=== PATIENT | male | born 1950 | race Caucasian/White ===

== ENCOUNTER 2016-11-19 12:34 | Outpatient (CLI) | payer BC, OTHER ==
[~2016-11-19] VITALS: Ht 177.8 cm; Wt 131.5 kg
[~2016-11-19 12:34] MED LIST: ASPI325T PO; ASPI81TAEC PO; ATEN50TA2 PO; ATOR1TAB21 PO; AZEL0.1S3; ELIQ5TAB PO; FLON1SPR; MELA5TAB17 PO; METO1TAB7 PO; ROPI0.25 PO; SALI0.6523
[2016-11-19] MEDS ORDERED: NS 1,000 ML IV ONE (13:00)
[2016-11-19] MEDS ORDERED: PROPOFOL 200 MG/20 ML VIAL As Ordered ONE ×2 (13:55→14:54)
[2016-11-19] MEDS ORDERED: LIDOCAINE 2% INJ 100 MG/5 ML SDV (FOR ANES.) As Ordered ONE (13:55)
--- NOTE | 2016-11-19 15:03 | ROOR ---
Patient Name: Mckinley Luis Procedure Date: 11/19/2016 2:14 PM Date of : 1950 Age: 66 Room: [facility] Gender: Male Note Status: Finalized Procedure: Total Colonoscopy to Cecum + Cold Snare Polypectomy + Hemoclip Indications: High risk colon cancer surveillance: Personal history of colonic polyps, Last colonoscopy: 2013 Providers: Carlos Alberto Pineda MD Referring MD: Ricky Rojas MD Requesting Provider: Medicines: Monitored Anesthesia Care Complications: No immediate complications. Procedure: Pre-Anesthesia Assessment: - The heart rate, respiratory rate, oxygen saturations, blood pressure, adequacy of pulmonary ventilation, and response to care were monitored throughout the procedure. The Colonoscope was introduced through the anus and advanced to the cecum, identified by appendiceal orifice and ileocecal valve. The colonoscopy was performed without difficulty. The patient tolerated the procedure well. The quality of the bowel preparation was good. Findings: The perianal and digital rectal examinations were normal. Non-bleeding internal hemorrhoids were found during retroflexion. The hemorrhoids were small and Grade I (internal hemorrhoids that do not prolapse). Multiple small and large-mouthed diverticula were found in the recto-sigmoid colon, sigmoid colon and descending colon. A medium polyp was found at 30 cm proximal to the anus. The polyp was sessile. The polyp was removed with a cold snare. Resection and retrieval were complete. A medium polyp was found at 60 cm proximal to the anus. The polyp was sessile. A large polyp was found in the mid ascending colon. The polyp was sessile. The polyp was removed with a cold snare. Resection and retrieval were complete. To prevent bleeding after the polypectomy, one hemostatic clip was successfully placed (MR conditional). There was no bleeding at the end of the procedure. The exam was otherwise without abnormality on direct and retroflexion views. Impression: - Non-bleeding internal hemorrhoids. - Diverticulosis in the recto-sigmoid colon, in the sigmoid colon and in the descending colon. - One medium polyp at 30 cm proximal to the anus, removed with a cold snare. Resected and retrieved. - One medium polyp at 60 cm proximal to the anus. - One large polyp in the mid ascending colon, removed with a cold snare. Resected and retrieved. Clip (MR conditional) was placed. - The examination was otherwise normal on direct and retroflexion views. - The exam was otherwise normal to the cecum. Recommendation: - Patient has a contact number available for emergencies. The signs and symptoms of potential delayed complications were discussed with the patient. Return to normal activities tomorrow. Written discharge instructions were provided to the patient. - High fiber diet. - Discharge patient to home. - Continue present medications. - Await pathology results. - Telephone GI clinic for pathology results in 1 week. - Repeat colonoscopy for surveillance based on pathology results. - Return to referring physician. - The findings and recommendations were discussed with the patient's family. Carlos Alberto Pineda MD Carlos Alberto Pineda MD 11/19/2016 3:03:32 PM This report has been signed electronically. Number of Addenda: 0 Note Initiated On: 11/19/2016 2:14 PM Estimated Blood Loss: Estimated blood loss: none.
[2016-11-19 15:35] VITALS: BP 132/92
== END 2016-11-19 15:37 | disposition home or self-care (01) ==
LOC: M OPP 12:34
PROVIDERS: ATTEND Internal Medicine Gastroenterology
DX: Z12.11 Encounter for screening for malignant neoplasm of colon (principal); Z86.010 Personal history of colon polyps; D12.5 Benign neoplasm of sigmoid colon; D12.4 Benign neoplasm of descending colon; D12.2 Benign neoplasm of ascending colon; K64.0 First degree hemorrhoids; K57.30 Diverticulosis of large intestine without perforation or abscess without bleeding; I48.91 Unspecified atrial fibrillation; E78.5 Hyperlipidemia, unspecified; G47.8 Other sleep disorders; G47.30 Sleep apnea, unspecified; Z87.891 Personal history of nicotine dependence; Z88.8 Allergy status to other drugs, medicaments and biological substances; Z79.82 Long term (current) use of aspirin; Z79.899 Other long term (current) drug therapy; Z79.01 Long term (current) use of anticoagulants; Z80.42 Family history of malignant neoplasm of prostate

== ENCOUNTER 2017-01-04 20:18 | Emergency (ER) | payer BC, OTHER ==
[~2017-01-04] VITALS: Ht 177.8 cm; Wt 125.0 kg
[2017-01-04] MEDS ORDERED: ASPIRIN 81 MG CHEW TABLET PO ONE (21:30)
[2017-01-04 21:38] LABS: BASO % 0.4 % (0.0-1.0); EOS # 0.4 10^3/uL (0.0-0.50); EOS % 4.2 % (0.0-3.0); IMMATURE GRANULOCYTE % 0.2 % (0-0); LYMPH # 1.6 10^3/uL (1.5-4.5); LYMPH % 18.5 % (24.0-44.0); MEAN CORPUSCULAR HEMOGLOBIN 29.4 pg (27.0-33.0); MEAN CORPUSCULAR HGB CONC 33.7 g/dl (32.0-36.5); MEAN CORPUSCULAR VOLUME 87.3 fl (80.0-96.0); MONO # 0.6 10^3/uL (0.0-0.8); NEUTROPHILS % 69.7 % (36.0-66.0); PLATELET COUNT, AUTOMATED 179 10^3/uL (150-450); RED CELL DISTRIBUTION WIDTH 13.6 % (11.5-14.5); WHITE BLOOD COUNT 8.6 10^3/uL (4.0-10.0)
[2017-01-04 21:42] LABS: INR 1.05
[2017-01-04 21:56] LABS: ANION GAP 7 MEQ/L (8-16); BLOOD UREA NITROGEN 26 MG/DL (7-18); CALCIUM LEVEL 8.7 MG/DL (8.8-10.2); CARBON DIOXIDE LEVEL 25 MEQ/L (21-32); CHLORIDE LEVEL 111 MEQ/L (98-107); CREATININE FOR GFR 1.03 MG/DL (0.70-1.30); GLOMERULAR FILTRATION RATE > 60.0 (>49); GLUCOSE, FASTING 99 MG/DL (80-110); POTASSIUM SERUM 3.8 MEQ/L (3.5-5.1); SODIUM LEVEL 143 MEQ/L (136-145)
[2017-01-05 05:06] VITALS: BP 129/82
--- NOTE | 2017-01-05 07:54 | REP ---
PA and lateral chest: Comparison is 12/13/2015. The lung lynn are clear. The cardiac size is normal The ana maria, mediastinum, and bony thorax are unremarkable. Impression: Negative PA and lateral chest. There is no interval change. Signed by Santos Kennedy MD 01/05/2017 07:46 A
--- NOTE | 2017-01-05 21:03 | ECGEPIP ---
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
--- NOTE | 2017-01-05 21:07 | ECGEPIP ---
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
== END 2017-01-05 05:10 | disposition home or self-care (01) ==
LOC: M ED 20:18
DX: R07.9 Chest pain, unspecified (principal); I48.91 Unspecified atrial fibrillation; R94.31 Abnormal electrocardiogram [ECG] [EKG]; Z87.891 Personal history of nicotine dependence; Z82.49 Family history of ischemic heart disease and other diseases of the circulatory system; Z79.82 Long term (current) use of aspirin; Z79.899 Other long term (current) drug therapy; Z88.6 Allergy status to analgesic agent

== ENCOUNTER 2017-01-09 16:51 | Emergency (ER) | payer BC, OTHER ==
[~2017-01-09] VITALS: Ht 177.8 cm; Wt 127.3 kg
[2017-01-09 17:48] LABS: BASO % 0.2 % (0.0-1.0); EOS # 0.3 10^3/uL (0.0-0.50); EOS % 4.2 % (0.0-3.0); IMMATURE GRANULOCYTE % 0.4 % (0-0); LYMPH # 1.2 10^3/uL (1.5-4.5); LYMPH % 14.1 % (24.0-44.0); MEAN CORPUSCULAR HEMOGLOBIN 29.4 pg (27.0-33.0); MEAN CORPUSCULAR HGB CONC 33.6 g/dl (32.0-36.5); MEAN CORPUSCULAR VOLUME 87.7 fl (80.0-96.0); MONO # 0.6 10^3/uL (0.0-0.8); MONO % 6.7 % (0.0-5.0); NEUTROPHILS # 6.1 10^3/uL (1.8-7.7); NEUTROPHILS % 74.4 % (36.0-66.0); PLATELET COUNT, AUTOMATED 182 10^3/uL (150-450); RED CELL DISTRIBUTION WIDTH 13.4 % (11.5-14.5); WHITE BLOOD COUNT 8.2 10^3/uL (4.0-10.0)
[2017-01-09 18:00] LABS: INR 1.11
[2017-01-09 18:19] LABS: ALBUMIN 3.4 GM/DL (3.2-5.2); ALKALINE PHOSPHATASE 83 U/L (45-117); ANION GAP 7 MEQ/L (8-16); AST/SGOT 17 U/L (7-37); BILIRUBIN,DIRECT 0.2 MG/DL (0.0-0.2); BILIRUBIN,TOTAL 0.5 MG/DL (0.2-1.0); BLOOD UREA NITROGEN 21 MG/DL (7-18); CALCIUM LEVEL 8.6 MG/DL (8.8-10.2); CARBON DIOXIDE LEVEL 28 MEQ/L (21-32); CHLORIDE LEVEL 108 MEQ/L (98-107); CREATININE FOR GFR 1.13 MG/DL (0.70-1.30); GLOMERULAR FILTRATION RATE > 60.0 (>49); GLUCOSE, FASTING 105 MG/DL (80-110); POTASSIUM SERUM 3.9 MEQ/L (3.5-5.1); SODIUM LEVEL 143 MEQ/L (136-145); TOTAL PROTEIN 6.5 GM/DL (6.4-8.2)
[2017-01-09 18:25] LABS: ALT/SGPT 30 U/L (12-78)
--- NOTE | 2017-01-09 18:40 | REP ---
Portable chest x-ray: Single view: History: Chest pain. Comparison study: January 04, 2017. Findings: EKG monitoring electrodes overlie the chest. The lungs are symmetrically aerated and clear. Pleural angles are sharp. Pulmonary vasculature is not increased. Heart is not enlarged. Impression: No acute disease. Signed by Merlin Sommers MD 01/09/2017 07:19 P
[2017-01-09] MEDS ORDERED: NITROGLYCERIN 2% OINT 1 GM *U/D* PKT TOP ONE (18:45)
[2017-01-09 20:21] VITALS: BP 134/87
--- NOTE | 2017-01-10 18:33 | ECGEPIP ---
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
== END 2017-01-09 20:29 | disposition short-term general hospital (02) ==
LOC: M ED 16:51 → EDBD 16:51 → M ED 20:29
DX: I24.9 Acute ischemic heart disease, unspecified (principal); I48.91 Unspecified atrial fibrillation; I10 Essential (primary) hypertension; N40.0 Benign prostatic hyperplasia without lower urinary tract symptoms; G47.30 Sleep apnea, unspecified; Z87.891 Personal history of nicotine dependence; Z82.49 Family history of ischemic heart disease and other diseases of the circulatory system; Z79.82 Long term (current) use of aspirin; Z79.899 Other long term (current) drug therapy; Z88.6 Allergy status to analgesic agent

== ENCOUNTER 2019-01-10 05:32 | Day surgery (SDC) | payer MEDICARE, BC, OTHER ==
[~2019-01-10] VITALS: Ht 177.8 cm; Wt 124.7 kg
[~2019-01-10 05:32] MED LIST changes: +ASPI-1 PO; -ASPI325T PO; +ATOR80TA59 PO; +AZEL1SPR3; +GABA600T4 PO; +LOSA50TA88 PO; -MELA5TAB17 PO; +MELA5TAB31 PO; +NITR0.4S14; -ROPI0.25 PO; +ROPI0.253 PO; +ROPI1TAB PO; -SALI0.6523; +SALI0.6528
[2019-01-10] MEDS ORDERED: LR 1,000 ML IV ONE (06:00)
[2019-01-10] MEDS ORDERED: ceFAZolin SOD 2 GM in IV 1 EA IV ONE (06:00)
[2019-01-10] MEDS ORDERED: dexameTHASONE 4 MG/ML 1ML VIAL (J1100) As Ordered ONE (06:47)
[2019-01-10] MEDS ORDERED: PROPOFOL 200 MG/20 ML VIAL As Ordered ONE (06:47)
[2019-01-10] MEDS ORDERED: ONDANSETRON 4MG/2ML VIAL (J2405) As Ordered ONE (06:47)
[2019-01-10] MEDS ORDERED: ACETAMINOPHEN 1000MG 100ML IV BTL (OFIRMEV) (J0131 PER 10MG) As Ordered ONE (06:47)
[2019-01-10] MEDS ORDERED: KETOROLAC 60 MG/2 ML VIAL (J1885) As Ordered ONE (06:47)
[2019-01-10] MEDS ORDERED: ROCURONIUM BROMIDE 50 MG/5 ML VIAL As Ordered ONE (06:47)
[2019-01-10] MEDS ORDERED: LIDOCAINE 2% INJ 100 MG/5 ML SDV (FOR ANES.) As Ordered ONE (06:47)
[2019-01-10] MEDS ORDERED: MIDAZOLAM INJ 2 MG/2 ML VIAL (J2250) As Ordered ONE (06:48)
[2019-01-10] MEDS ORDERED: fentaNYL 250 MCG/5 ML INJECTION (J3010) As Ordered ONE (06:48)
[2019-01-10] MEDS ORDERED: BUPIVACAINE HCL 0.25% 30 ML VIAL As Ordered ONE (07:36)
[2019-01-10] MEDS ORDERED: KETAMINE HCL 200 MG/20 ML VIAL As Ordered ONE (07:47)
[2019-01-10] MEDS ORDERED: SUCCINYLCHOLINE 100 MG/5 ML SYRINGE (J0330) As Ordered ONE (07:54)
[2019-01-10] MEDS ORDERED: MORPHINE 10 MG/ML 1ML VIAL (J2270) IV PRN (08:45)
[2019-01-10] MEDS ORDERED: fentaNYL 100 MCG/2 ML INJECTION (J3010) IV PRN (08:45)
[2019-01-10] MEDS ORDERED: LR 1,000 ML IV SCH ×2 (08:45)
[2019-01-10] MEDS ORDERED: PERCOCET 5MG/325MG TAB PO PRN (08:45)
[2019-01-10] MEDS ORDERED: ONDANSETRON 4MG/2ML VIAL (J2405) IV PRN (08:45)
[2019-01-10] MEDS ORDERED: oxyCODONE 5MG TAB PO PRN (08:45)
--- NOTE | 2019-01-10 09:21 | RO ---
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 SURGEON: Dr. Blayne Hobbs TRACK GRINDER: ANESTHESIA: General. ESTIMATED BLOOD LOSS: Minimal. COMPLICATIONS: None. INDICATIONS: 68-year-old gentleman who has had some persistent numbness in the left hand. EMG nerve conduction study was positive for ulnar nerve entrapment and carpal tunnel and he wished to go ahead with surgical treatment. He understood the nature of this and the risks of bleeding, infection, damage to nerves, vessels, persistent pain, stiffness, recurrence, subluxation of the nerves, among others. DESCRIPTION OF PROCEDURE: The patient was taken to the operating room and placed in supine position after general anesthesia was induced. The left upper extremity was prepped and draped in the usual sterile fashion. A time out was performed. I then created a curvilinear incision over the medial aspect of the elbow and blunt dissection was carried down through subcutaneous tissue until I was able to identify the nerve. This was just posterior to the medial epicondyle. I carefully dissected above the nerve in both directions completing the release and freeing it up. There was a fair amount of fatty infiltration of the nerve distal to the medial epicondyle and it appeared to be pretty tight just distal to the medial epicondyle. Once I had completed the dissection in both directions, I palpated with a small finger and made sure the release was complete. I made sure that there was no subluxation of the nerve. I then irrigated and closed the subcutaneous with #2-0 Vicryl and the skin with jatinder. We then directed our attention to the carpal tunnel. A longitudinal incision was made over the proximal ulnar palm. Blunt dissection was carried down through the subcutaneous tissue until the transverse carpal ligament was encountered. This was incised longitudinally with a 15 blade entering the ulnar border of the carpal tunnel. I then completed the dissection proximally and distally under direct visualization until a complete release was noted. The median nerve was protected with a [place]. I palpated with a small finger in both directions and made sure the release was complete. I irrigated copiously and closed the skin with #5-0 nylon suture. Sterile dressing was applied. Tourniquet was deflated and a long arm posterior splint was applied. He was taken to the recovery room in stable condition. There were no known complications. The plan will be routine postop. The plan will be to remove the long arm splint in roughly 10-14 days and staple and suture removal at that point.
[2019-01-10 09:24] VITALS: BP 121/69
== END 2019-01-10 10:13 | disposition home or self-care (01) ==
LOC: M SDC 05:32
PROVIDERS: ATTEND Orthopaedic Surgery
DX: G56.02 Carpal tunnel syndrome, left upper limb (principal); G56.21 Lesion of ulnar nerve, right upper limb; I10 Essential (primary) hypertension; I48.91 Unspecified atrial fibrillation; G47.30 Sleep apnea, unspecified; E78.5 Hyperlipidemia, unspecified; G25.81 Restless legs syndrome; Z79.01 Long term (current) use of anticoagulants; Z87.891 Personal history of nicotine dependence; Z79.82 Long term (current) use of aspirin; Z79.899 Other long term (current) drug therapy
CPT/HCPCS: 64718; 64721; J0330; J0690; J1100; J2250; J2405; J3010

== ENCOUNTER 2019-07-07 19:35 | Emergency (ER) | payer MEDICARE, BC, OTHER ==
[~2019-07-07] VITALS: Ht 177.8 cm; Wt 121.5 kg
[~2019-07-07 19:35] MED LIST changes: -ROPI1TAB PO; +ROPI1TAB3 PO
--- NOTE | 2019-07-07 20:23 | REPVR ---
PROCEDURE INFORMATION: Exam: CT Head Without Contrast Exam date and time: 07/07/2019 8:15 PM Age: 69 years old Clinical indication: Injury or trauma; Fall; Initial encounter; Blunt trauma (contusions or hematomas); Without loss of consciousness; Additional info: Fall, eliquis, neg loc TECHNIQUE: Imaging protocol: Computed tomography of the head without contrast. Radiation optimization: All CT scans at this facility use at least one of these dose optimization techniques: automated exposure control; mA and/or kV adjustment per patient size (includes targeted exams where dose is matched to clinical indication); or iterative reconstruction. COMPARISON: No relevant prior studies available. FINDINGS: Brain: There is no acute cortical infarction, intracranial hemorrhage or mass. Ventricles: No ventriculomegaly. Bones/joints: Unremarkable. No acute fracture. Sinuses: Visualized sinuses are unremarkable. No fluid levels. Mastoid air cells: Visualized mastoid air cells are well aerated. Soft tissues: Unremarkable. Vasculature: Atherosclerosis. IMPRESSION: No evidence of acute intracranial trauma. Electronically signed by: Frieda Becker On 07/07/2019 20:23:06 PM
--- NOTE | 2019-07-07 21:26 | REPVR ---
PROCEDURE INFORMATION: Exam: US Right Non-Vascular Joint or Other Extremity Structure, Limited Upper Extremity Exam date and time: 07/07/2019 9:10 PM Age: 69 years old Clinical indication: Pain; Lower or forearm; Right; Additional info: Hematoma? R forearm TECHNIQUE: Imaging protocol: Right US Non-Vascular Joint or Other Extremity Structure. Limited exam of the upper extremity. COMPARISON: CR Forearm Radius,Ulna RIGHT 07/07/2019 8:14 PM FINDINGS: Soft tissues: Two areas of increased echogenicity are seen in the right forearm laterally which may represent hematomas. The region is heterogeneous and the larger region measures 3.5 x 2 x 1.7 cm. The hematoma appears to be intramuscular. There is a smaller adjacent echogenic region which appears subcutaneous and measures 1.5 x 0.6 x 1.7 cm. IMPRESSION: There are 2 heterogeneous regions in the right lateral forearm with areas of increased echogenicity likely representing hematomas 1 of which is subcutaneous in the 2nd is likely intramuscular. Electronically signed by: Frieda Becker On 07/07/2019 21:26:17 PM
[2019-07-07 21:50] VITALS: BP 158/84
--- NOTE | 2019-07-08 02:22 | REP ---
Clinical: Trauma. Technique: AP and lateral views of the right forearm. Findings: Lateral view best demonstrates soft tissue swelling underlying the mid forearm posteriorly. No subcutaneous emphysema or foreign body identified. No acute fracture or dislocation. Impression: Swelling. No acute fracture or dislocation. Electronically Signed by Shay Cerrato MD 07/08/2019 02:13 A
== END 2019-07-07 21:51 | disposition home or self-care (01) ==
LOC: M ED 19:35
DX: S50.11XA Contusion of right forearm, initial encounter (principal); S70.01XA Contusion of right hip, initial encounter; S80.01XA Contusion of right knee, initial encounter; S60.811A Abrasion of right wrist, initial encounter; W11.XXXA Fall on and from ladder, initial encounter; Y92.198 Other place in other specified residential institution as the place of occurrence of the external cause; Y93.9 Activity, unspecified; I48.91 Unspecified atrial fibrillation; I10 Essential (primary) hypertension; E78.5 Hyperlipidemia, unspecified; F17.200 Nicotine dependence, unspecified, uncomplicated; Z95.5 Presence of coronary angioplasty implant and graft; Z79.82 Long term (current) use of aspirin; Z88.6 Allergy status to analgesic agent; Z88.8 Allergy status to other drugs, medicaments and biological substances

== ENCOUNTER → 2020-01-09 | Outpatient (CLI) | payer MEDICARE, BC, OTHER ==
[~2020-01-09] MED LIST changes: -MELA5TAB31 PO; +MELA5TAB36 PO
== END ==
LOC: M LABSMTC 13:50
PROVIDERS: ATTEND Family Medicine
DX: Z20.828 Contact with and (suspected) exposure to other viral communicable diseases (principal)
CPT/HCPCS: C9803; U0003

== ENCOUNTER 2020-10-26 11:16 | Emergency (ER) | payer MEDICARE, BC, OTHER ==
[~2020-10-26] VITALS: Ht 177.8 cm; Wt 128.9 kg
[~2020-10-26 11:16] MED LIST changes: +ASPI-569 PO; -ASPI81TAEC PO
--- NOTE | 2020-10-26 12:16 | REP ---
INDICATION: pain after a fall COMPARISON: None TECHNIQUE: Five views FINDINGS: There is slight tricompartmental marginal osteophytosis and mild medial compartmental narrowing. There is mild patellofemoral joint space narrowing. There is no evidence of an acute fracture or destructive osseous lesion. IMPRESSION: Chronic changes as described above. <Electronically signed by Madan Bryson > 10/26/20 [id number]
--- NOTE | 2020-10-26 14:38 | REP ---
INDICATION: pain/swelling. COMPARISON: None. TECHNIQUE: Duplex FINDINGS: No evidence of deep venous thrombosis above or below the knee. IMPRESSION: Negative venous duplex examination right lower extremity. <Electronically signed by Kam Zavaleta > 10/26/20 [id number]
[2020-10-26 15:48] VITALS: BP 140/82
== END 2020-10-26 15:48 | disposition home or self-care (01) ==
LOC: M ED 11:16
DX: S80.11XA Contusion of right lower leg, initial encounter (principal); R22.41 Localized swelling, mass and lump, right lower limb; W01.198A Fall on same level from slipping, tripping and stumbling with subsequent striking against other object, initial encounter; Y92.017 Garden or yard in single-family (private) house as the place of occurrence of the external cause; Y93.9 Activity, unspecified; Y99.8 Other external cause status; Z88.8 Allergy status to other drugs, medicaments and biological substances; Z79.82 Long term (current) use of aspirin; Z79.899 Other long term (current) drug therapy

== ENCOUNTER → 2022-05-14 | Outpatient (CLI) | payer MEDICARE, BC, OTHER ==
[~2022-05-14] MED LIST changes: +CLON0.5T2 PO; +FLUTISP; +LOSA50TA28 PO; -LOSA50TA88 PO; +MIRT-11 PO
== END ==
LOC: M LABSMTC 09:16
PROVIDERS: ATTEND Anesthesiology
DX: Z01.812 Encounter for preprocedural laboratory examination (principal); Z20.822 Contact with and (suspected) exposure to COVID-19

== ENCOUNTER 2022-05-19 07:44 | Day surgery (SDC) | payer MEDICARE, BC, OTHER ==
[~2022-05-19] VITALS: Ht 177.8 cm; Wt 129.0 kg
[~2022-05-19 07:44] MED LIST changes: +NS 1,000 ML IV ONE
[2022-05-19] MEDS ORDERED: LIDOCAINE 2% 100MG/5ML SDV (FOR ANES.) As Ordered ONE (08:20)
[2022-05-19] MEDS ORDERED: propofoL 200 MG/20 ML VIAL As Ordered ONE ×2 (08:20→08:54)
[2022-05-19 09:27] VITALS: BP 201/101
== END 2022-05-19 09:50 | disposition home or self-care (01) ==
LOC: M OPP 07:44
PROVIDERS: ATTEND Internal Medicine Gastroenterology
DX: Z12.11 Encounter for screening for malignant neoplasm of colon (principal); Z86.010 Personal history of colon polyps; D12.6 Benign neoplasm of colon, unspecified; K57.30 Diverticulosis of large intestine without perforation or abscess without bleeding; K64.0 First degree hemorrhoids; G47.33 Obstructive sleep apnea (adult) (pediatric); E78.00 Pure hypercholesterolemia, unspecified; I48.91 Unspecified atrial fibrillation; Z87.891 Personal history of nicotine dependence; Z95.5 Presence of coronary angioplasty implant and graft; Z79.01 Long term (current) use of anticoagulants; Z79.02 Long term (current) use of antithrombotics/antiplatelets; Z79.52 Long term (current) use of systemic steroids; Z79.82 Long term (current) use of aspirin; Z79.899 Other long term (current) drug therapy; Z88.6 Allergy status to analgesic agent

== ENCOUNTER 2022-06-07 07:11 | Inpatient (IN) | payer MEDICARE, BC, OTHER ==
[~2022-06-07] VITALS: Ht 177.8 cm; Wt 126.9 kg
[~2022-06-07 07:11] MED LIST changes: -NITR0.4S14; +NITR0.4S14 SL; -NS 1,000 ML IV ONE
[2022-06-07] MEDS ORDERED: NS 1,000 ML IV ONE (08:20)
[2022-06-07 08:58] LABS: BASO % 0.4 % (0.0-1.0); EOS # 0.3 10^3/uL (0.0-0.5); HEMATOCRIT 38.5 % (42.0-52.0); HEMOGLOBIN 12.3 g/dl (13.5-17.5); LYMPH # 1.3 10^3/uL (1.5-5.0); LYMPH % 16.1 % (24.0-44.0); MEAN CORPUSCULAR HEMOGLOBIN 28.6 pg (27.0-33.0); MEAN CORPUSCULAR HGB CONC 31.9 g/dl (32.0-36.5); MEAN CORPUSCULAR VOLUME 89.5 fl (80.0-96.0); MONO # 0.6 10^3/uL (0.0-0.8); MONO % 7.1 % (2.0-8.0); NEUTROPHILS # 5.6 10^3/uL (1.5-8.5); PLATELET COUNT, AUTOMATED 145 10^3/uL (150-450); WHITE BLOOD COUNT 7.8 10^3/uL (4.0-10.0)
[2022-06-07] MEDS: FLUTICASONE PROP 0.05% NASAL SPRAY 16 GM (FLONASE) SCH (09:00)
[2022-06-07] MEDS: AZELASTINE 137MCG NASAL SPY 30 ML (ASTELIN) SCH (09:00)
[2022-06-07 09:17] LABS: INR 1.18; PROTHROMBIN TIME 15.3 SECONDS (12.5-14.5)
[2022-06-07 09:18] LABS: PARTIAL THROMBOPLASTIN TIME 30.9 SECONDS (24.8-34.2)
[2022-06-07 09:19] LABS: LIPASE 19 U/L (12-53)
[2022-06-07 09:21] LABS: ALBUMIN 3.1 G/DL (3.2-5.2); ALKALINE PHOSPHATASE 104 U/L (46-116); ALT/SGPT 35 U/L (7.0-40); AST/SGOT 20 U/L (<34); BILIRUBIN,DIRECT 0.3 MG/DL (<0.4); BILIRUBIN,TOTAL 0.6 MG/DL (0.3-1.2); BLOOD UREA NITROGEN 20 MG/DL (9-23); CALCIUM LEVEL 8.2 MG/DL (8.3-10.6); CARBON DIOXIDE LEVEL 27 MMOL/L (20-31); CHLORIDE LEVEL 111 MMOL/L (98-107); CREATININE FOR GFR 0.89 MG/DL (0.70-1.30); GLOMERULAR FILTRATION RATE > 60.0 (>42); GLUCOSE, FASTING 103 MG/DL (74-106); POTASSIUM SERUM 4.3 MMOL/L (3.5-5.1); SODIUM LEVEL 143 MMOL/L (136-145); TOTAL PROTEIN 5.6 G/DL (5.7-8.2)
[2022-06-07] MEDS ORDERED: ATEN50TA2 PO (09:26)
[2022-06-07] MEDS ORDERED: ECOT81TA5 PO (09:26)
[2022-06-07] MEDS ORDERED: HOME MED LIST COMPLETE! XX SCH (09:30)
[2022-06-07 09:54] LABS: RSV AMPLIFICATION NEGATIVE (NEGATIVE)
[2022-06-07 11:46] LABS: HEMATOCRIT 39.5 % (42.0-52.0); HEMOGLOBIN 12.5 g/dl (13.5-17.5); MEAN CORPUSCULAR HEMOGLOBIN 28.3 pg (27.0-33.0); MEAN CORPUSCULAR HGB CONC 31.6 g/dl (32.0-36.5); MEAN CORPUSCULAR VOLUME 89.6 fl (80.0-96.0); PLATELET COUNT, AUTOMATED 144 10^3/uL (150-450); RED BLOOD COUNT 4.41 10^6/uL (4.30-6.10); WHITE BLOOD COUNT 8.3 10^3/uL (4.0-10.0)
[2022-06-07] MEDS: LOSARTAN 50MG TABLET PO SCH (12:13)
[2022-06-07] MEDS: GABAPENTIN 300 MG CAP PO SCH ×2 (12:14→20:05)
[2022-06-07] MEDS: atenoloL 50 MG TAB PO SCH ×2 (12:14→20:07)
[2022-06-07] MEDS ORDERED: NITROGLYCERIN 0.4MG SUBL TABLET SL PRN (12:20)
[2022-06-07 13:40] VITALS: BP 149/93
[2022-06-07] MEDS: rOPINIRole 1MG TAB PO SCH ×2 (14:00→20:11)
[2022-06-07] MEDS: PANTOPRAZOLE 40MG VIAL IV SCH ×2 (14:36→20:08)
[2022-06-07] MEDS: MIRTAZAPINE 15 MG TAB PO SCH (20:05)
[2022-06-07] MEDS: ATORVASTATIN 20 MG TAB PO SCH (20:05)
[2022-06-07] MEDS: clonazePAM 0.5 MG TAB PO SCH (20:08)
[2022-06-07 21:00] VITALS: BP 105/59
[2022-06-07 23:03] LABS: HEMATOCRIT 33.2 % (42.0-52.0); HEMOGLOBIN 10.6 g/dl (13.5-17.5); MEAN CORPUSCULAR HEMOGLOBIN 28.9 pg (27.0-33.0); MEAN CORPUSCULAR HGB CONC 31.9 g/dl (32.0-36.5); MEAN CORPUSCULAR VOLUME 90.5 fl (80.0-96.0); PLATELET COUNT, AUTOMATED 144 10^3/uL (150-450); RED BLOOD COUNT 3.67 10^6/uL (4.30-6.10); WHITE BLOOD COUNT 9.5 10^3/uL (4.0-10.0)
[2022-06-08 05:00] VITALS: BP 133/77
[2022-06-08] MEDS: rOPINIRole 1MG TAB PO SCH ×3 (05:01→21:04)
[2022-06-08 06:45] LABS: ALBUMIN 2.9 G/DL (3.2-5.2); ALKALINE PHOSPHATASE 81 U/L (46-116); ALT/SGPT 24 U/L (7.0-40); AST/SGOT 23 U/L (<34); BILIRUBIN,TOTAL 0.7 MG/DL (0.3-1.2); BLOOD UREA NITROGEN 21 MG/DL (9-23); CALCIUM LEVEL 7.8 MG/DL (8.3-10.6); CARBON DIOXIDE LEVEL 26 MMOL/L (20-31); CHLORIDE LEVEL 110 MMOL/L (98-107); CREATININE FOR GFR 0.83 MG/DL (0.70-1.30); GLOMERULAR FILTRATION RATE > 60.0 (>42); GLUCOSE, FASTING 105 MG/DL (74-106); POTASSIUM SERUM 4.3 MMOL/L (3.5-5.1); SODIUM LEVEL 142 MMOL/L (136-145); TOTAL PROTEIN 5.2 G/DL (5.7-8.2)
[2022-06-08 07:46] LABS: HEMATOCRIT 30.9 % (42.0-52.0); HEMOGLOBIN 9.9 g/dl (13.5-17.5); MEAN CORPUSCULAR HEMOGLOBIN 28.8 pg (27.0-33.0); MEAN CORPUSCULAR VOLUME 89.8 fl (80.0-96.0); PLATELET COUNT, AUTOMATED 130 10^3/uL (150-450); RED BLOOD COUNT 3.44 10^6/uL (4.30-6.10); WHITE BLOOD COUNT 7.4 10^3/uL (4.0-10.0)
[2022-06-08] MEDS: AZELASTINE 137MCG NASAL SPY 30 ML (ASTELIN) SCH (09:00)
[2022-06-08] MEDS: PANTOPRAZOLE 40MG VIAL IV SCH ×2 (10:39→21:05)
[2022-06-08] MEDS: GABAPENTIN 300 MG CAP PO SCH ×2 (10:41→21:04)
[2022-06-08] MEDS: LOSARTAN 50MG TABLET PO SCH (10:41)
[2022-06-08] MEDS: atenoloL 50 MG TAB PO SCH ×2 (10:42→21:08)
[2022-06-08] MEDS: FLUTICASONE PROP 0.05% NASAL SPRAY 16 GM (FLONASE) SCH (10:42)
[2022-06-08 14:00] VITALS: BP 117/57
[2022-06-08 18:45] LABS: HEMATOCRIT 33.9 % (42.0-52.0); HEMOGLOBIN 10.8 g/dl (13.5-17.5); MEAN CORPUSCULAR HEMOGLOBIN 28.7 pg (27.0-33.0); MEAN CORPUSCULAR HGB CONC 31.9 g/dl (32.0-36.5); MEAN CORPUSCULAR VOLUME 90.2 fl (80.0-96.0); PLATELET COUNT, AUTOMATED 142 10^3/uL (150-450); RED BLOOD COUNT 3.76 10^6/uL (4.30-6.10); WHITE BLOOD COUNT 8.1 10^3/uL (4.0-10.0)
[2022-06-08 20:58] VITALS: BP 111/75
[2022-06-08] MEDS: MIRTAZAPINE 15 MG TAB PO SCH (21:04)
[2022-06-08] MEDS: ATORVASTATIN 20 MG TAB PO SCH (21:05)
[2022-06-08] MEDS: clonazePAM 0.5 MG TAB PO SCH (21:05)
[2022-06-09] MEDS: rOPINIRole 1MG TAB PO SCH ×3 (03:52→21:15)
[2022-06-09 05:00] VITALS: BP 111/73
[2022-06-09 06:58] LABS: HEMATOCRIT 32.2 % (42.0-52.0); HEMOGLOBIN 10.3 g/dl (13.5-17.5); MEAN CORPUSCULAR HEMOGLOBIN 28.9 pg (27.0-33.0); MEAN CORPUSCULAR VOLUME 90.4 fl (80.0-96.0); PLATELET COUNT, AUTOMATED 129 10^3/uL (150-450); RED BLOOD COUNT 3.56 10^6/uL (4.30-6.10); WHITE BLOOD COUNT 7.5 10^3/uL (4.0-10.0)
[2022-06-09 07:26] LABS: ALBUMIN 3.1 G/DL (3.2-5.2); ALKALINE PHOSPHATASE 95 U/L (46-116); ALT/SGPT 27 U/L (7.0-40); AST/SGOT 19 U/L (<34); BILIRUBIN,TOTAL 0.9 MG/DL (0.3-1.2); BLOOD UREA NITROGEN 16 MG/DL (9-23); CALCIUM LEVEL 8.4 MG/DL (8.3-10.6); CARBON DIOXIDE LEVEL 26 MMOL/L (20-31); CHLORIDE LEVEL 109 MMOL/L (98-107); CREATININE FOR GFR 0.91 MG/DL (0.70-1.30); GLOMERULAR FILTRATION RATE > 60.0 (>42); GLUCOSE, FASTING 101 MG/DL (74-106); POTASSIUM SERUM 3.9 MMOL/L (3.5-5.1); SODIUM LEVEL 142 MMOL/L (136-145); TOTAL PROTEIN 5.5 G/DL (5.7-8.2)
[2022-06-09] MEDS ORDERED: GOLYTELY SOLN 4000 ML BTL PO ONE (08:05)
[2022-06-09] MEDS: GABAPENTIN 300 MG CAP PO SCH ×2 (09:25→20:35)
[2022-06-09] MEDS: PANTOPRAZOLE 40MG VIAL IV SCH ×2 (09:25→20:31)
[2022-06-09] MEDS: LOSARTAN 50MG TABLET PO SCH (09:26)
[2022-06-09] MEDS: atenoloL 50 MG TAB PO SCH ×2 (09:26→20:35)
[2022-06-09] MEDS: AZELASTINE 137MCG NASAL SPY 30 ML (ASTELIN) SCH (09:26)
[2022-06-09] MEDS: FLUTICASONE PROP 0.05% NASAL SPRAY 16 GM (FLONASE) SCH (09:27)
[2022-06-09 14:00] VITALS: BP 151/91
[2022-06-09] MEDS: ATORVASTATIN 20 MG TAB PO SCH (20:32)
[2022-06-09] MEDS: MIRTAZAPINE 15 MG TAB PO SCH (20:32)
[2022-06-09] MEDS: clonazePAM 0.5 MG TAB PO SCH (20:36)
[2022-06-09 21:00] VITALS: BP 145/90
[2022-06-10] MEDS: rOPINIRole 1MG TAB PO SCH ×3 (04:28→21:14)
[2022-06-10 05:23] VITALS: BP 134/69
[2022-06-10 06:39] LABS: HEMATOCRIT 29.3 % (42.0-52.0); HEMOGLOBIN 9.7 g/dl (13.5-17.5); MEAN CORPUSCULAR HEMOGLOBIN 29.7 pg (27.0-33.0); MEAN CORPUSCULAR HGB CONC 33.1 g/dl (32.0-36.5); MEAN CORPUSCULAR VOLUME 89.6 fl (80.0-96.0); PLATELET COUNT, AUTOMATED 112 10^3/uL (150-450); RED BLOOD COUNT 3.27 10^6/uL (4.30-6.10); WHITE BLOOD COUNT 5.3 10^3/uL (4.0-10.0)
[2022-06-10 07:08] LABS: ALBUMIN 3.1 G/DL (3.2-5.2); ALKALINE PHOSPHATASE 96 U/L (46-116); ALT/SGPT 24 U/L (7.0-40); AST/SGOT 19 U/L (<34); BILIRUBIN,TOTAL 0.9 MG/DL (0.3-1.2); BLOOD UREA NITROGEN 11 MG/DL (9-23); CALCIUM LEVEL 8.3 MG/DL (8.3-10.6); CARBON DIOXIDE LEVEL 27 MMOL/L (20-31); CHLORIDE LEVEL 109 MMOL/L (98-107); CREATININE FOR GFR 0.84 MG/DL (0.70-1.30); GLOMERULAR FILTRATION RATE > 60.0 (>42); GLUCOSE, FASTING 99 MG/DL (74-106); POTASSIUM SERUM 3.8 MMOL/L (3.5-5.1); SODIUM LEVEL 142 MMOL/L (136-145); TOTAL PROTEIN 5.4 G/DL (5.7-8.2)
[2022-06-10] MEDS: GABAPENTIN 300 MG CAP PO SCH ×2 (08:34→21:15)
[2022-06-10] MEDS: AZELASTINE 137MCG NASAL SPY 30 ML (ASTELIN) SCH (08:34)
[2022-06-10] MEDS: atenoloL 50 MG TAB PO SCH ×2 (08:34→21:14)
[2022-06-10] MEDS: FLUTICASONE PROP 0.05% NASAL SPRAY 16 GM (FLONASE) SCH (08:34)
[2022-06-10] MEDS: LOSARTAN 50MG TABLET PO SCH (08:34)
[2022-06-10] MEDS: PANTOPRAZOLE 40MG VIAL IV SCH ×2 (08:35→21:15)
[2022-06-10 14:00] VITALS: BP 127/80
[2022-06-10] MEDS ORDERED: propofoL 200 MG/20 ML VIAL As Ordered ONE (16:54)
[2022-06-10] MEDS ORDERED: LIDOCAINE 2% 100MG/5ML SDV (FOR ANES.) As Ordered ONE (16:54)
[2022-06-10] MEDS ORDERED: fentaNYL 100 MCG/2 ML INJECTION As Ordered ONE (16:54)
[2022-06-10 17:55] VITALS: BP 152/85
[2022-06-10 20:00] VITALS: BP 151/81
[2022-06-10] MEDS: ATORVASTATIN 20 MG TAB PO SCH (21:12)
[2022-06-10] MEDS: MIRTAZAPINE 15 MG TAB PO SCH (21:14)
[2022-06-10] MEDS: APIXABAN 5 MG TAB (ELIQUIS) PO SCH (21:15)
[2022-06-10] MEDS: clonazePAM 0.5 MG TAB PO SCH (21:15)
[2022-06-10] MEDS: MIRALAX *UNIT DOSE* 17GM PACKET PO SCH (21:16)
[2022-06-11] MEDS: rOPINIRole 1MG TAB PO SCH ×2 (04:40→11:47)
[2022-06-11 06:00] VITALS: BP 143/93
[2022-06-11 06:15] LABS: BASO % 0.3 % (0.0-1.0); EOS # 0.3 10^3/uL (0.0-0.5); EOS % 4.6 % (0.0-3.0); HEMATOCRIT 31.6 % (42.0-52.0); HEMOGLOBIN 10.1 g/dl (13.5-17.5); LYMPH # 1.3 10^3/uL (1.5-5.0); LYMPH % 22.2 % (24.0-44.0); MEAN CORPUSCULAR HEMOGLOBIN 28.5 pg (27.0-33.0); MEAN CORPUSCULAR VOLUME 89.3 fl (80.0-96.0); MONO # 0.4 10^3/uL (0.0-0.8); MONO % 7.2 % (2.0-8.0); NEUTROPHILS # 3.8 10^3/uL (1.5-8.5); NEUTROPHILS % 65.5 % (36.0-66.0); PLATELET COUNT, AUTOMATED 131 10^3/uL (150-450); RED BLOOD COUNT 3.54 10^6/uL (4.30-6.10); WHITE BLOOD COUNT 5.9 10^3/uL (4.0-10.0)
[2022-06-11 06:44] LABS: BLOOD UREA NITROGEN 10 MG/DL (9-23); CALCIUM LEVEL 8.3 MG/DL (8.3-10.6); CARBON DIOXIDE LEVEL 28 MMOL/L (20-31); CHLORIDE LEVEL 108 MMOL/L (98-107); CREATININE FOR GFR 0.89 MG/DL (0.70-1.30); GLOMERULAR FILTRATION RATE > 60.0 (>42); GLUCOSE, FASTING 88 MG/DL (74-106); POTASSIUM SERUM 3.6 MMOL/L (3.5-5.1); SODIUM LEVEL 140 MMOL/L (136-145)
[2022-06-11 08:39] VITALS: BP 143/93
[2022-06-11] MEDS: LOSARTAN 50MG TABLET PO SCH (08:39)
[2022-06-11] MEDS: GABAPENTIN 300 MG CAP PO SCH (08:39)
[2022-06-11] MEDS: atenoloL 50 MG TAB PO SCH (08:39)
[2022-06-11] MEDS: APIXABAN 5 MG TAB (ELIQUIS) PO SCH (08:39)
[2022-06-11] MEDS: MIRALAX *UNIT DOSE* 17GM PACKET PO SCH (08:40)
[2022-06-11] MEDS: FLUTICASONE PROP 0.05% NASAL SPRAY 16 GM (FLONASE) SCH (08:43)
[2022-06-11] MEDS: AZELASTINE 137MCG NASAL SPY 30 ML (ASTELIN) SCH (08:44)
[2022-06-11] MEDS ORDERED: OMEPRAZOLE 20MG CAP PO SCH (09:00)
[2022-06-11] MEDS ORDERED: OMEP40CA4 PO (09:16)
[2022-06-11] MEDS ORDERED: MIRA1POW3 PO (09:16)
== END 2022-06-11 11:58 | disposition home or self-care (01) | DRG 920 ==
LOC: M ED 07:11 → M ED INP 10:51 → ENRESERV 11:55 → M MSPAV 13:36
PROVIDERS: ADMIT Internal Medicine; ATTEND Student in an Organized Health Care Education/Training Program
PROC: 0W3P8ZZ Control Bleeding in Gastrointestinal Tract, Via Natural or Artificial Opening Endoscopic (ICD-10-PCS; 2022-06-10)
PROC: 0DJ08ZZ Inspection of Upper Intestinal Tract, Via Natural or Artificial Opening Endoscopic (ICD-10-PCS; principal; 2022-06-10 15:00)
DX: K91.840 Postprocedural hemorrhage of a digestive system organ or structure following a digestive system procedure (principal); I48.19 Other persistent atrial fibrillation; D62 Acute posthemorrhagic anemia; Z68.41 Body mass index [BMI] 40.0-44.9, adult; K62.5 Hemorrhage of anus and rectum; I10 Essential (primary) hypertension; I25.10 Atherosclerotic heart disease of native coronary artery without angina pectoris; E78.5 Hyperlipidemia, unspecified; G47.33 Obstructive sleep apnea (adult) (pediatric); G89.29 Other chronic pain; Z95.5 Presence of coronary angioplasty implant and graft; Z79.01 Long term (current) use of anticoagulants; G25.81 Restless legs syndrome; D50.9 Iron deficiency anemia, unspecified; K64.4 Residual hemorrhoidal skin tags; K64.8 Other hemorrhoids; K29.70 Gastritis, unspecified, without bleeding; K57.30 Diverticulosis of large intestine without perforation or abscess without bleeding; E66.01 Morbid (severe) obesity due to excess calories; F41.9 Anxiety disorder, unspecified; F32.A Depression, unspecified; G20 Parkinson's disease; Z79.82 Long term (current) use of aspirin; Z79.899 Other long term (current) drug therapy; Z88.8 Allergy status to other drugs, medicaments and biological substances; Z95.2 Presence of prosthetic heart valve; Z87.891 Personal history of nicotine dependence

== ENCOUNTER 2022-09-15 12:52 | Emergency (ER) | payer MEDICARE, BC, OTHER ==
[~2022-09-15] VITALS: Ht 177.8 cm; Wt 127.3 kg
[~2022-09-15 12:52] MED LIST changes: +ECOT81TA5 PO; +FLUT50SP17; -FLUTISP; +MIRA1POW3 PO; +OMEP40CA4 PO
[2022-09-15 12:53] VITALS: TEMP 96.5; O2SAT 98
[2022-09-15 16:05] VITALS: BP 146/78
[2022-09-15] MEDS ORDERED: RABIES VACCINE HUMAN 2.5 INTERNATIONAL UNITS/ML VIAL IM ONE (16:25)
== END 2022-09-15 16:56 | disposition home or self-care (01) ==
LOC: M ED 12:52
DX: Z29.14 Encounter for prophylactic rabies immune globulin (principal); Z20.3 Contact with and (suspected) exposure to rabies; W55.89XA Other contact with other mammals, initial encounter; I10 Essential (primary) hypertension; F41.9 Anxiety disorder, unspecified; F32.A Depression, unspecified; Z86.79 Personal history of other diseases of the circulatory system; Z87.891 Personal history of nicotine dependence; Z88.6 Allergy status to analgesic agent; Z88.8 Allergy status to other drugs, medicaments and biological substances; Z79.01 Long term (current) use of anticoagulants; Z79.891 Long term (current) use of opiate analgesic; Z79.811 Long term (current) use of aromatase inhibitors; Z79.899 Other long term (current) drug therapy

== ENCOUNTER 2022-09-18 07:27 | Emergency (ER) | payer MEDICARE, BC, OTHER ==
[~2022-09-18] VITALS: Ht 177.8 cm; Wt 129.4 kg
[~2022-09-18 07:27] MED LIST changes: -ROPI0.253 PO; -ROPI1TAB3 PO; +ROPI1TAB73 PO; +ROPI5TAB19 PO
[2022-09-18] MEDS ORDERED: RABIES VACCINE HUMAN 2.5 INTERNATIONAL UNITS/ML VIAL IM ONE (08:55)
[2022-09-18 09:33] VITALS: BP 165/83; TEMP 97.5; O2SAT 100
== END 2022-09-18 09:38 | disposition home or self-care (01) ==
LOC: M ED 07:27
DX: Z29.14 Encounter for prophylactic rabies immune globulin (principal); I10 Essential (primary) hypertension; E78.5 Hyperlipidemia, unspecified; Z88.5 Allergy status to narcotic agent; Z88.8 Allergy status to other drugs, medicaments and biological substances; Z79.01 Long term (current) use of anticoagulants; Z79.811 Long term (current) use of aromatase inhibitors; Z79.899 Other long term (current) drug therapy

== ENCOUNTER 2023-06-06 08:50 | Emergency (ER) | payer MEDICARE, BC ==
[~2023-06-06] VITALS: Ht 177.8 cm; Wt 124.1 kg
[~2023-06-06 08:50] MED LIST changes: -FLUT50SP17; +FLUTISP; -MIRA1POW3 PO; +MIRA33506 PO
[2023-06-06] MEDS ORDERED: QUET1TAB17 (09:05)
[2023-06-06] MEDS ORDERED: CLON1TAB17 PO (09:05)
[2023-06-06 09:43] LABS: BASO % 0.3 % (0.0-1.0); EOS # 0.2 10^3/uL (0.0-0.5); EOS % 3.2 % (0.0-3.0); HEMOGLOBIN 14.1 g/dl (13.5-17.5); LYMPH % 14.5 % (24.0-44.0); MEAN CORPUSCULAR HEMOGLOBIN 26.3 pg (27.0-33.0); MEAN CORPUSCULAR HGB CONC 31.3 g/dl (32.0-36.5); MEAN CORPUSCULAR VOLUME 83.8 fl (80.0-96.0); MONO # 0.6 10^3/uL (0.0-0.8); MONO % 7.9 % (2.0-8.0); NEUTROPHILS # 5.2 10^3/uL (1.5-8.5); PLATELET COUNT, AUTOMATED 151 10^3/uL (150-450); RED BLOOD COUNT 5.37 10^6/uL (4.30-6.10)
[2023-06-06 10:17] LABS: ETHYL ALCOHOL (ETHANOL) < 0.003 % (0.000-0.010)
[2023-06-06 10:18] LABS: ALBUMIN 3.7 G/DL (3.2-5.2); ALKALINE PHOSPHATASE 114 U/L (46-116); ALT/SGPT 27 U/L (7.0-40); AST/SGOT 31 U/L (<34); BILIRUBIN,DIRECT 0.5 MG/DL (<0.4); BILIRUBIN,TOTAL 1.2 MG/DL (0.3-1.2); BLOOD UREA NITROGEN 15 MG/DL (9-23); CALCIUM LEVEL 8.9 MG/DL (8.3-10.6); CARBON DIOXIDE LEVEL 26 MMOL/L (20-31); CHLORIDE LEVEL 108 MMOL/L (98-107); CREATININE FOR GFR 0.91 MG/DL (0.70-1.30); GLOMERULAR FILTRATION RATE > 60.0 (>42); GLUCOSE, FASTING 112 MG/DL (74-106); POTASSIUM SERUM 4.6 MMOL/L (3.5-5.1); SALICYLATE LEVEL < 3.0 MG/DL (<30); SODIUM LEVEL 136 MMOL/L (136-145); TOTAL PROTEIN 6.7 G/DL (5.7-8.2)
[2023-06-06 10:20] LABS: CK-MB VALUE MASS 2.8 NG/ML (<3.6)
[2023-06-06 10:22] LABS: CPK CREATINE PHOSPHOKINASE 180 U/L (46-171); MB/CK RELATIVE INDEX 1.55 (< OR =4); THYROID STIMULATING HORMONE 3.096 uIU/ML (0.55-4.78)
[2023-06-06 10:25] LABS: RSV AMPLIFICATION NEGATIVE (NEGATIVE)
[2023-06-06 10:45] LABS: AMPHETAMINES LEVEL URINE NEGATIVE (NEGATIVE); BARBITURATES URINE NEGATIVE (NEGATIVE); BENZODIAZEPINES URINE NEGATIVE (NEGATIVE); CANNABINOIDS URINE NEGATIVE (NEGATIVE); COCAINE METABOLITE URINE NEGATIVE (NEGATIVE); METHADONE URINE NEGATIVE (NEGATIVE); OPIATES URINE NEGATIVE (NEGATIVE); PHENCYCLIDINE URINE NEGATIVE (NEGATIVE)
[2023-06-06 11:27] VITALS: BP 156/82; TEMP 98.7; O2SAT 95
== END 2023-06-06 11:39 | disposition home or self-care (01) ==
LOC: M ED 10:09
DX: R44.1 Visual hallucinations (principal); I48.91 Unspecified atrial fibrillation; I10 Essential (primary) hypertension; F32.A Depression, unspecified; F41.9 Anxiety disorder, unspecified; G47.33 Obstructive sleep apnea (adult) (pediatric); G20.A1 Parkinson's disease without dyskinesia, without mention of fluctuations; Z86.79 Personal history of other diseases of the circulatory system; Z87.891 Personal history of nicotine dependence; Z79.01 Long term (current) use of anticoagulants; Z79.82 Long term (current) use of aspirin; Z79.891 Long term (current) use of opiate analgesic; Z79.811 Long term (current) use of aromatase inhibitors; Z79.899 Other long term (current) drug therapy

== ENCOUNTER 2023-06-11 11:37 | Emergency (ER) | payer MEDICARE, BC ==
[~2023-06-11] VITALS: Ht 177.8 cm; Wt 125.0 kg
[~2023-06-11 11:37] MED LIST changes: +CLON1TAB17 PO; +QUET1TAB17
[2023-06-11] MEDS: GABAPENTIN 300 MG CAP PO ONE (13:20)
[2023-06-11] MEDS ORDERED: AMOX875T2 PO (13:42)
[2023-06-11 14:37] VITALS: BP 163/97; TEMP 96.9; O2SAT 98
== END 2023-06-11 14:42 | disposition home or self-care (01) ==
LOC: M ED 12:01
DX: S09.90XA Unspecified injury of head, initial encounter (principal); S02.2XXA Fracture of nasal bones, initial encounter for closed fracture; S40.011A Contusion of right shoulder, initial encounter; W07.XXXA Fall from chair, initial encounter; M19.011 Primary osteoarthritis, right shoulder; I10 Essential (primary) hypertension; E78.5 Hyperlipidemia, unspecified; N40.0 Benign prostatic hyperplasia without lower urinary tract symptoms; K57.92 Diverticulitis of intestine, part unspecified, without perforation or abscess without bleeding; F03.90 Unspecified dementia, unspecified severity, without behavioral disturbance, psychotic disturbance, mood disturbance, and anxiety; Z86.79 Personal history of other diseases of the circulatory system; Z88.8 Allergy status to other drugs, medicaments and biological substances; Z88.6 Allergy status to analgesic agent; Z79.2 Long term (current) use of antibiotics; Z79.01 Long term (current) use of anticoagulants; Z79.82 Long term (current) use of aspirin; Z79.891 Long term (current) use of opiate analgesic; Z79.811 Long term (current) use of aromatase inhibitors; Z79.899 Other long term (current) drug therapy; Y92.009 Unspecified place in unspecified non-institutional (private) residence as the place of occurrence of the external cause; Y93.9 Activity, unspecified; Y99.9 Unspecified external cause status

== ENCOUNTER 2023-09-20 15:37 | Emergency (ER) | payer MEDICARE, BC ==
[~2023-09-20] VITALS: Ht 177.8 cm; Wt 125.2 kg
[~2023-09-20 15:37] MED LIST changes: +AMOX875T2 PO
[2023-09-20 16:35] LABS: BASO % 0.4 % (0.0-1.0); EOS # 0.2 10^3/uL (0.0-0.5); EOS % 2.1 % (0.0-3.0); HEMATOCRIT 43.7 % (42.0-52.0); HEMOGLOBIN 14.1 g/dl (13.5-17.5); LYMPH # 1.2 10^3/uL (1.5-5.0); LYMPH % 17.7 % (24.0-44.0); MEAN CORPUSCULAR HEMOGLOBIN 27.5 pg (27.0-33.0); MEAN CORPUSCULAR HGB CONC 32.3 g/dl (32.0-36.5); MEAN CORPUSCULAR VOLUME 85.4 fl (80.0-96.0); MONO # 0.5 10^3/uL (0.0-0.8); MONO % 7.3 % (2.0-8.0); NEUTROPHILS # 5.1 10^3/uL (1.5-8.5); NEUTROPHILS % 72.4 % (36.0-66.0); PLATELET COUNT, AUTOMATED 152 10^3/uL (150-450); RED BLOOD COUNT 5.12 10^6/uL (4.30-6.10)
[2023-09-20 16:56] LABS: CK-MB VALUE MASS 2.1 NG/ML (<3.6)
[2023-09-20 16:58] LABS: ALBUMIN 3.7 G/DL (3.2-5.2); ALKALINE PHOSPHATASE 127 U/L (46-116); ALT/SGPT 22 U/L (7.0-40); AST/SGOT 16 U/L (<34); BILIRUBIN,DIRECT 0.2 MG/DL (<0.4); BILIRUBIN,TOTAL 0.5 MG/DL (0.3-1.2); BLOOD UREA NITROGEN 14 MG/DL (9-23); CALCIUM LEVEL 8.7 MG/DL (8.3-10.6); CARBON DIOXIDE LEVEL 29 MMOL/L (20-31); CHLORIDE LEVEL 109 MMOL/L (98-107); CREATININE FOR GFR 0.93 MG/DL (0.70-1.30); GLOMERULAR FILTRATION RATE > 60.0 (>42); GLUCOSE, FASTING 109 MG/DL (74-106); INR 1.18; PARTIAL THROMBOPLASTIN TIME 31.7 SECONDS (24.8-34.2); PROTHROMBIN TIME 14.7 SECONDS (12.5-14.5); SODIUM LEVEL 142 MMOL/L (136-145); TOTAL PROTEIN 6.6 G/DL (5.7-8.2)
[2023-09-20 16:59] LABS: THYROID STIMULATING HORMONE 2.518 uIU/ML (0.55-4.78)
[2023-09-20 17:04] LABS: CPK CREATINE PHOSPHOKINASE 88 U/L (46-171); MB/CK RELATIVE INDEX 2.38 (< OR =4)
[2023-09-20] MEDS ORDERED: FUROSEMIDE 40MG/4ML VIAL IV ONE (17:20)
[2023-09-20] MEDS: FUROSEMIDE 20MG/2ML VIAL IV ONE (17:32)
[2023-09-20 18:19] LABS: CK-MB VALUE MASS 1.8 NG/ML (<3.6)
[2023-09-20 18:26] LABS: MB/CK RELATIVE INDEX 2.5 (< OR =4)
[2023-09-20] MEDS: hydrALAZINE 20MG/ML 1ML VIAL IV ONE (19:30)
[2023-09-20 19:45] VITALS: BP 162/74; O2SAT 99
[2023-09-20] MEDS ORDERED: LASI20TA3 PO (19:58)
[2023-09-20 20:00] VITALS: TEMP 97.8
== END 2023-09-20 20:08 | disposition home or self-care (01) ==
LOC: M ED 15:37
DX: I10 Essential (primary) hypertension (principal); I48.91 Unspecified atrial fibrillation; K92.2 Gastrointestinal hemorrhage, unspecified; N40.0 Benign prostatic hyperplasia without lower urinary tract symptoms; Z88.6 Allergy status to analgesic agent; Z88.8 Allergy status to other drugs, medicaments and biological substances; Z87.891 Personal history of nicotine dependence; Z86.79 Personal history of other diseases of the circulatory system; Z79.01 Long term (current) use of anticoagulants; Z79.82 Long term (current) use of aspirin; Z79.811 Long term (current) use of aromatase inhibitors; Z79.899 Other long term (current) drug therapy
CPT/HCPCS: 36415; 71045; 80048; 80076; 82550; 82553; 83880; 84443; 84484; 85025; 85610; 85730; 93005; 93041; 94760; 96374; 99285; J1940

== ENCOUNTER 2023-12-19 08:09 | Emergency (ER) | payer MEDICARE, BC ==
[~2023-12-19] VITALS: Ht 177.8 cm; Wt 123.7 kg
[~2023-12-19 08:09] MED LIST changes: +GABA-1490 PO; -GABA600T4 PO; +LASI20TA3 PO; -QUET1TAB17; +QUET1TAB17 PO
[2023-12-19 08:45] LABS: BASO % 0.4 % (0.0-1.0); EOS # 0.3 10^3/uL (0.0-0.5); EOS % 3.3 % (0.0-3.0); HEMATOCRIT 45.2 % (42.0-52.0); HEMOGLOBIN 14.8 g/dl (13.5-17.5); LYMPH # 1.5 10^3/uL (1.5-5.0); LYMPH % 19.2 % (24.0-44.0); MEAN CORPUSCULAR HEMOGLOBIN 28.9 pg (27.0-33.0); MEAN CORPUSCULAR HGB CONC 32.7 g/dl (32.0-36.5); MEAN CORPUSCULAR VOLUME 88.3 fl (80.0-96.0); MONO # 0.6 10^3/uL (0.0-0.8); MONO % 7.8 % (2.0-8.0); NEUTROPHILS # 5.3 10^3/uL (1.5-8.5); PLATELET COUNT, AUTOMATED 145 10^3/uL (150-450); RED BLOOD COUNT 5.12 10^6/uL (4.30-6.10); WHITE BLOOD COUNT 7.6 10^3/uL (4.0-10.0)
[2023-12-19 09:11] LABS: INR 1.28; PARTIAL THROMBOPLASTIN TIME 34.5 SECONDS (24.8-34.2); PROTHROMBIN TIME 15.6 SECONDS (12.5-14.5)
[2023-12-19 09:17] LABS: LIPASE 25 U/L (12-53)
[2023-12-19 09:19] LABS: ALBUMIN 3.5 G/DL (3.2-5.2); ALKALINE PHOSPHATASE 135 U/L (46-116); ALT/SGPT 32 U/L (7.0-40); AST/SGOT 31 U/L (<34); BILIRUBIN,DIRECT 0.2 MG/DL (<0.4); BILIRUBIN,TOTAL 0.6 MG/DL (0.3-1.2); BLOOD UREA NITROGEN 15 MG/DL (9-23); CALCIUM LEVEL 9.2 MG/DL (8.3-10.6); CARBON DIOXIDE LEVEL 27 MMOL/L (20-31); CHLORIDE LEVEL 108 MMOL/L (98-107); CREATININE FOR GFR 1.04 MG/DL (0.70-1.30); GLOMERULAR FILTRATION RATE > 60.0 (>42); GLUCOSE, FASTING 90 MG/DL (74-106); POTASSIUM SERUM 4.3 MMOL/L (3.5-5.1); SODIUM LEVEL 139 MMOL/L (136-145); TOTAL PROTEIN 6.9 G/DL (5.7-8.2)
[2023-12-19 09:22] LABS: THYROID STIMULATING HORMONE 4.496 uIU/ML (0.55-4.78)
[2023-12-19 09:23] LABS: FREE T4 0.95 NG/DL (0.89-1.76)
[2023-12-19 09:25] LABS: CPK CREATINE PHOSPHOKINASE 89 U/L (46-171); MB/CK RELATIVE INDEX 1.12 (< OR =4)
[2023-12-19 10:08] LABS: CK-MB VALUE MASS < 1.0 NG/ML (<3.6)
[2023-12-19 10:10] LABS: CPK CREATINE PHOSPHOKINASE 68 U/L (46-171); MB/CK RELATIVE INDEX 1.47 (< OR =4)
[2023-12-19] MEDS ORDERED: ISOVUE-370 76% 100ML VIAL As Ordered ONE (11:10)
[2023-12-19] MEDS ORDERED: GABA-1172 PO (13:17)
[2023-12-19] MEDS ORDERED: FURO20TA2 PO (13:17)
[2023-12-19] MEDS ORDERED: SPIR-10 PO (13:17)
[2023-12-19] MEDS ORDERED: ARIC1TAB PO (13:17)
[2023-12-19] MEDS ORDERED: HOME MED LIST COMPLETE! XX SCH (13:20)
[2023-12-19 13:32] VITALS: BP 177/75; TEMP 97.2; O2SAT 95
[2023-12-19] MEDS ORDERED: OMEP40CA4 PO (13:42)
[2023-12-19] MEDS ORDERED: SUCR1SS PO (13:42)
== END 2023-12-19 14:05 | disposition home or self-care (01) ==
LOC: M ED 08:09
DX: K80.20 Calculus of gallbladder without cholecystitis without obstruction (principal); I48.91 Unspecified atrial fibrillation; G47.30 Sleep apnea, unspecified; I10 Essential (primary) hypertension; E78.5 Hyperlipidemia, unspecified; Z88.6 Allergy status to analgesic agent; Z88.8 Allergy status to other drugs, medicaments and biological substances; Z86.79 Personal history of other diseases of the circulatory system; Z87.891 Personal history of nicotine dependence; Z79.01 Long term (current) use of anticoagulants; Z79.82 Long term (current) use of aspirin; Z79.02 Long term (current) use of antithrombotics/antiplatelets; Z79.899 Other long term (current) drug therapy
CPT/HCPCS: 36415; 71045; 71275; 74177; 80048; 80076; 82550; 82553; 83690; 83880; 84439; 84443; 84484; 85025; 85610; 85730; 93005; 93041; 94760; 99285; Q9967